=== PATIENT | female | born 2000 | race Caucasian/White ===

== ENCOUNTER 2020-01-08 17:51 | Inpatient (IN) ==
[2020-01-08 18:15] LABS: Appearance Urine Cloudy (Clear); Bacteria Urine Automated 4+ (Negative); Bilirubin Urine Negative (Negative); Blood Urine 2+ (Negative); Color Urine Yellow; Epithelial Cell Urine Auto >30 /lpf (0-5); Glucose Urine UA Negative (Negative); Ketones Urine Negative (Negative); Leukocyte Esterase Urine 1+ (Negative); Nitrite Urine Negative (Negative); Specific Gravity Urine 1.018 (1.000-1.030); Urobilinogen Urine Negative (Negative); pH Urine 7.5 (4.5-7.5)
[2020-01-08 18:19] LABS: Protein Urine Negative (Negative); Sulfosalicylic Acid Urine Negative (Negative)
--- NOTE | 2020-01-08 18:24 | Emergency Department Note ---
Impression & Plan Depression with suicidal ideation, Anxiety ED Provider Note NAME: SUYAPA ORELLANA AGE: 19 SEX: F : 2000 ARRIVES VIA: Walk-In INFORMANT: Patient, ED PROVIDER(S): Jonathan Alcantar DO CHIEF COMPLAINT: Anxiety and depression HPI: The patient is a 19-year-old female who presented to the emergency department with her mother for mental health evaluation. The patient does have a history of depression and is currently being treated with Lexapro however she just started this medication approximately 1 month ago. She states for approximately 1 year she has had some depression and suicidal ideation. 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 She denies having any drug or alcohol abuse but does state that she has had suicidal ideation and recently started having a plan of wanting to harm herself by either taking an overdose of medications or driving her vehicle off the road and causing a collision. She states her symptoms are moderate to severe at this time. She is never had previous inpatient mental health treatment. She denies having any chest pain or difficulty breathing. She denies having any recent illnesses such as cough or fever. ROS: See above HPI for pertinent positives & negatives. A total of 10 systems reviewed and were otherwise negative. PAST MEDICAL HISTORY: See Below PAST SURGICAL HISTORY: See Below FAMILY HISTORY: See Below SOCIAL HISTORY: See Below HOME MEDICATIONS: See Below ALLERGIES: See Below VITALS: See Below PHYSICAL EXAMINATION: GENERAL: The patient is awake and alert. She is very anxious appearing and tearful. EYES: The conjunctivae are clear. The pupils are round and reactive. EARS, NOSE, MOUTH AND THROAT: The nose is without any evidence of any deformity. NECK: The neck is nontender and supple. RESPIRATORY: Normal respiratory effort is noted there is no evidence of wheezing rhonchi or rales CARDIOVASCULAR: Tachycardic rate with regular rhythm was noted. There was no definite murmur. GASTROINTESTINAL: The abdomen is soft. Abdomen is nontender. MUSCULOSKELETAL/EXTREMITIES: There is no evidence of gross deformity full range of motion is noted in the hips and shoulders. SKIN: There is no obvious evidence of any rash. There are no petechiae, pallor or cyanosis noted. NEUROLOGIC: Patient is awake alert and oriented x3 strength is symmetric patellar reflexes are 2+ bilaterally PSYCH: The patient is awake and alert. She makes poor eye contact for most of the evaluation. She is tearful and mixed suicidal ideation with a plan. MEDICAL DECISION MAKING: The patient is a 19-year-old female who presented to the emergency department for mental health evaluation. The patient was having very severe depression as well as suicidal ideation. She started having a plan with thoughts of overdosing or possibly crashing her car. She presented to the emergency department after symptoms continue to worsen despite medical treatment as an outpatient. She was evaluated and medically cleared by myself in the emergency department. She was found to have some signs of urinary tract infection however I feel this is a contaminated specimen as she has no UTI symptoms. I would prefer that the culture be followed to determine if treatment should be initiated or if the patient develops symptoms. She was evaluated by the mental health residential case manager in the emergency department. She was felt to be a good candidate for inpatient management. At this time the patient is agreeable to inpatient management and is awaiting evaluation by 3 S. The patient was reevaluated and was still tearful at 1 point in a nicotine patch was ordered. Triage Nursing notes reviewed. Prior medical records reviewed Vital Signs: reviewed and remarkable for initial tachycardia. Differential diagnosis: Mood disorder, infection, hypoglycemia, electrolyte abnormalities, cardiac sources, intracerebral event, toxicologic, trauma, neurologic, as well as other pathologies. ER treatment provided: See below Diagnostics interpreted by me: ECG: none Laboratory studies: As stated above and show below. Imaging studies: See below Consultation(s): None Past Med/Surg History Medical History Abdominal hernia Family History Other Cancer Gallbladder disease Social History Smoking Status: Never smoker Tobacco Type: E-cigarettes / Vaping Feels Safe at Home: Yes Allergies Allergies Allergy/AdvReac Type Severity Reaction Status Date / Time No Known Allergies Allergy Mild Verified 01/08/20 18:20 Home Meds Home Medications Medication Instructions Recorded Confirmed escitalopram oxalate [Lexapro] 20 mg PO DAILY 01/08/20 01/08/20 norgestimate-ethinyl estradiol 1 tab PO DAILY 01/08/20 01/08/20 Results & Data (ED) Vital Signs Vital Signs - 24 hr 01/08/20 17:52 01/08/20 20:07 Temperature 36.8 C Temperature Source Oral Pulse Rate 131 H Pulse Rate [Right Finger] 72 Pulse Rhythm Regular Pulse Strength Normal Respiratory Rate 20 16 Respiratory Effort / Characteristics Non-Labored Spontaneous Respiratory Depth Normal Respiratory Pattern Regular Blood Pressure 111/63 Blood Pressure [Right Arm] 94/65 L Blood Pressure Mean 79 Blood Pressure Mean [Right Arm] 74 Pulse Oximetry 99 100 Oxygen Delivery Method Room Air Sepsis Recent Fever Within 48 Hours No Sepsis New/Unexplained Change in Mental Status N/A Sepsis Action Taken by Nursing No Action Required Home Medications Current Medication List: was personally reviewed by me Laboratory Data Attestation: I reviewed the patient's lab results. Result diagrams: 01/08/20 18:33 01/08/20 18:33 Lab Results 01/08/20 01/08/20 01/08/20 Range/Units 18:02 18:02 18:18 WBC (4.8-10.8) K/uL RBC (4.2-5.4) M/uL Hgb (12.0-16.0) g/dL Hct (37-47) % MCV (80-100) fL MCH (25-34) pg MCHC (32-36) g/dL RDW Std Deviation (36.4-46.3) fL RDW Coeff of Scotty (11.5-14.5) % Plt Count (130-400) K/uL MPV (7.4-10.4) fL Immature Gran % (Auto) % Neut % (Auto) % Lymph % (Auto) % Cook % (Auto) % Eos % (Auto) % Baso % (Auto) % Neut # (Auto) (1.4-6.5) K/uL Lymph # (Auto) (1.2-3.4) K/uL Cook # (Auto) (0.11-0.59) K/uL Eos # (Auto) (0-0.5) K/uL Baso # (Auto) (0-0.2) K/uL Immature Gran # (Auto) (0.00-0.02) K/uL Sodium (136-145) mmol/L Potassium (3.5-5.1) mmol/L Chloride (98-107) mmol/L Carbon Dioxide (21-32) mmol/L Anion Gap (3-11) BUN (7-18) mg/dl Creatinine (0.6-1.2) mg/dl Est Cr Clr Drug Dosing ml/min Est GFR ( Amer) Est GFR (Non-Af Amer) BUN/Creatinine Ratio (10-20) Glucose (70-99) mg/dl Calcium (8.5-10.1) mg/dl Total Bilirubin (0.2-1) mg/dl AST (15-37) U/L ALT (12-78) U/L Alkaline Phosphatase (45-117) U/L Total Protein (6.4-8.2) gm/dl Albumin (3.4-5.0) gm/dl Globulin (2.5-4.0) gm/dl Albumin/Globulin Ratio (0.9-2) TSH (0.300-4.500) uIu/ml HCG, Qual (Negative) Urine Color Yellow Urine Appearance Cloudy A (Clear) Urine pH 7.5 (4.5-7.5) Ur Specific Butler 1.018 (1.000-1.030) Urine Protein Negative (Negative) Urine Glucose (UA) Negative (Negative) Urine Ketones Negative (Negative) Urine Blood 2+ H (Negative) Urine Nitrite Negative (Negative) Urine Bilirubin Negative (Negative) Urine Urobilinogen Negative (Negative) Ur Leukocyte Esterase 1+ H (Negative) Urine WBC (Auto) 10-30 H (0-5) /hpf Urine RBC (Auto) 10-30 H (0-4) /hpf U Hyaline Cast (Auto) 1-5 (0-5) /lpf U Epithel Cells (Auto) >30 H (0-5) /lpf Urine Bacteria (Auto) 4+ H (Negative) Salicylates (2.8-20) mg/dl Urine Opiates Screen Neg (Neg) Ur Methadone, Qual Neg (Neg) Acetaminophen (10-30) ug/ml Urine Barbiturates Neg (Neg) Ur Phencyclidine (PCP) Neg (Neg) U Amphetamin/Meth Scrn Neg (Neg) MDMA (Ecstasy) Screen Neg (Neg) U Benzodiazepines Scrn Neg (Neg) Ur Cocaine Metabolite Neg (Neg) U Marijuana (THC) Screen Pos H (Neg) Ethyl Alcohol mg/dL (0-3) mg/dl COVID-19 Eval [facility] SARS-CoV-2, RNA, NAAT (NEGATIVE) 01/08/20 01/08/20 01/08/20 Range/Units 18:18 18:33 18:33 WBC 7.81 (4.8-10.8) K/uL RBC 4.37 (4.2-5.4) M/uL Hgb 13.8 (12.0-16.0) g/dL Hct 42.5 (37-47) % MCV 97.3 (80-100) fL MCH 31.6 (25-34) pg MCHC 32.5 (32-36) g/dL RDW Std Deviation 42.7 (36.4-46.3) fL RDW Coeff of Scotty 11.9 (11.5-14.5) % Plt Count 333 (130-400) K/uL MPV 10.4 (7.4-10.4) fL Immature Gran % (Auto) 0.3 % Neut % (Auto) 76.4 % Lymph % (Auto) 18.6 % Cook % (Auto) 4.1 % Eos % (Auto) 0.3 % Baso % (Auto) 0.3 % Neut # (Auto) 5.98 (1.4-6.5) K/uL Lymph # (Auto) 1.45 (1.2-3.4) K/uL Cook # (Auto) 0.32 (0.11-0.59) K/uL Eos # (Auto) 0.02 (0-0.5) K/uL Baso # (Auto) 0.02 (0-0.2) K/uL Immature Gran # (Auto) 0.02 (0.00-0.02) K/uL Sodium 139 (136-145) mmol/L Potassium 3.9 (3.5-5.1) mmol/L Chloride 106 (98-107) mmol/L Carbon Dioxide 25 (21-32) mmol/L Anion Gap 8.0 (3-11) BUN 12 (7-18) mg/dl Creatinine 0.96 (0.6-1.2) mg/dl Est Cr Clr Drug Dosing 80.5 ml/min Est GFR ( Amer) 98.0 Est GFR (Non-Af Amer) 84.5 BUN/Creatinine Ratio 12.9 (10-20) Glucose 115 H (70-99) mg/dl Calcium 8.8 (8.5-10.1) mg/dl Total Bilirubin 0.9 (0.2-1) mg/dl AST 10 L (15-37) U/L ALT 16 (12-78) U/L Alkaline Phosphatase 62 (45-117) U/L Total Protein 7.5 (6.4-8.2) gm/dl Albumin 3.8 (3.4-5.0) gm/dl Globulin 3.7 (2.5-4.0) gm/dl Albumin/Globulin Ratio 1.0 (0.9-2) TSH 1.230 (0.300-4.500) uIu/ml HCG, Qual (Negative) Urine Color Urine Appearance (Clear) Urine pH (4.5-7.5) Ur Specific Butler (1.000-1.030) Urine Protein (Negative) Urine Glucose (UA) (Negative) Urine Ketones (Negative) Urine Blood (Negative) Urine Nitrite (Negative) Urine Bilirubin (Negative) Urine Urobilinogen (Negative) Ur Leukocyte Esterase (Negative) Urine WBC (Auto) (0-5) /hpf Urine RBC (Auto) (0-4) /hpf U Hyaline Cast (Auto) (0-5) /lpf U Epithel Cells (Auto) (0-5) /lpf Urine Bacteria (Auto) (Negative) Salicylates (2.8-20) mg/dl Urine Opiates Screen (Neg) Ur Methadone, Qual (Neg) Acetaminophen (10-30) ug/ml Urine Barbiturates (Neg) Ur Phencyclidine (PCP) (Neg) U Amphetamin/Meth Scrn (Neg) MDMA (Ecstasy) Screen (Neg) U Benzodiazepines Scrn (Neg) Ur Cocaine Metabolite (Neg) U Marijuana (THC) Screen (Neg) Ethyl Alcohol mg/dL (0-3) mg/dl COVID-19 Eval Order SARS-CoV-2, RNA, NAAT NEGATIVE (NEGATIVE) 01/08/20 01/08/20 01/08/20 Range/Units 18:33 18:33 18:33 WBC (4.8-10.8) K/uL RBC (4.2-5.4) M/uL Hgb (12.0-16.0) g/dL Hct (37-47) % MCV (80-100) fL MCH (25-34) pg MCHC (32-36) g/dL RDW Std Deviation (36.4-46.3) fL RDW Coeff of Scotty (11.5-14.5) % Plt Count (130-400) K/uL MPV (7.4-10.4) fL Immature Gran % (Auto) % Neut % (Auto) % Lymph % (Auto) % Cook % (Auto) % Eos % (Auto) % Baso % (Auto) % Neut # (Auto) (1.4-6.5) K/uL Lymph # (Auto) (1.2-3.4) K/uL Cook # (Auto) (0.11-0.59) K/uL Eos # (Auto) (0-0.5) K/uL Baso # (Auto) (0-0.2) K/uL Immature Gran # (Auto) (0.00-0.02) K/uL Sodium (136-145) mmol/L Potassium (3.5-5.1) mmol/L Chloride (98-107) mmol/L Carbon Dioxide (21-32) mmol/L Anion Gap (3-11) BUN (7-18) mg/dl Creatinine (0.6-1.2) mg/dl Est Cr Clr Drug Dosing ml/min Est GFR ( Amer) Est GFR (Non-Af Amer) BUN/Creatinine Ratio (10-20) Glucose (70-99) mg/dl Calcium (8.5-10.1) mg/dl Total Bilirubin (0.2-1) mg/dl AST (15-37) U/L ALT (12-78) U/L Alkaline Phosphatase (45-117) U/L Total Protein (6.4-8.2) gm/dl Albumin (3.4-5.0) gm/dl Globulin (2.5-4.0) gm/dl Albumin/Globulin Ratio (0.9-2) TSH (0.300-4.500) uIu/ml HCG, Qual Negative (Negative) Urine Color Urine Appearance (Clear) Urine pH (4.5-7.5) Ur Specific Butler (1.000-1.030) Urine Protein (Negative) Urine Glucose (UA) (Negative) Urine Ketones (Negative) Urine Blood (Negative) Urine Nitrite (Negative) Urine Bilirubin (Negative) Urine Urobilinogen (Negative) Ur Leukocyte Esterase (Negative) Urine WBC (Auto) (0-5) /hpf Urine RBC (Auto) (0-4) /hpf U Hyaline Cast (Auto) (0-5) /lpf U Epithel Cells (Auto) (0-5) /lpf Urine Bacteria (Auto) (Negative) Salicylates < 1.7 L (2.8-20) mg/dl Urine Opiates Screen (Neg) Ur Methadone, Qual (Neg) Acetaminophen < 2 L (10-30) ug/ml Urine Barbiturates (Neg) Ur Phencyclidine (PCP) (Neg) U Amphetamin/Meth Scrn (Neg) MDMA (Ecstasy) Screen (Neg) U Benzodiazepines Scrn (Neg) Ur Cocaine Metabolite (Neg) U Marijuana (THC) Screen (Neg) Ethyl Alcohol mg/dL < 3.0 (0-3) mg/dl COVID-19 Eval Order SARS-CoV-2, RNA, NAAT (NEGATIVE) Blood Pressure Blood Pressure Findings: Normal blood pressure Discharge Plan Visit Data Chief Complaint: Mental Health Evaluation Stated Complaint: mental health eval ED Provider: Jonathan Alcantar Discharge Problem: Depression with suicidal ideation, Anxiety Forms Stand Alone Forms: [facility], Suicide Prevention Resources Prescriptions Prescriptions: No Action norgestimate-ethinyl estradiol 0.18/0.215/0.25 mg-35 mcg (28) Tablet 1 tab PO DAILY RF: 0 escitalopram oxalate [Lexapro] 20 mg Tablet 20 mg PO DAILY RF: 0 Referrals Referrals: PCP,NO [Primary Care Provider] -
[2020-01-08 18:32] LABS: Amphetamines+Metham, Urine Neg (Neg); Barbiturates, Urine Neg (Neg); Benzodiazepine, Urine Neg (Neg); Cocaine, Urine Neg (Neg); MDMA (Ecstacy), Urine Neg (Neg); Methadone, Urine Neg (Neg); Opiate, Urine Neg (Neg); Phencyclidine, Urine Neg (Neg)
[2020-01-08 18:46] LABS: Basophils # (auto) 0.02 K/uL (0-0.2); Basophils % (auto) 0.3 %; Eosinophils # (auto) 0.02 K/uL (0-0.5); Eosinophils % (auto) 0.3 %; Hematocrit (blood only) 42.5 % (37-47); Hemoglobin 13.8 g/dL (12.0-16.0); Immature Granulocytes # (auto) 0.02 K/uL (0.00-0.02); Immature Granulocytes % (auto) 0.3 %; Lymphocytes # (auto) 1.45 K/uL (1.2-3.4); Lymphocytes % (auto) 18.6 %; Mean Corpuscular Hemoglobin 31.6 pg (25-34); Mean Corpuscular Hgb Conc 32.5 g/dL (32-36); Mean Corpuscular Volume 97.3 fL (80-100); Mean Platelet Volume 10.4 fL (7.4-10.4); Monocytes # (auto) 0.32 K/uL (0.11-0.59); Monocytes % (auto) 4.1 %; Neutrophils # (auto) 5.98 K/uL (1.4-6.5); Neutrophils % (auto) 76.4 %; Platelet Count 333 K/uL (130-400); RDW Coefficient of Variation 11.9 % (11.5-14.5); RDW Standard Deviation 42.7 fL (36.4-46.3); Red Blood Count 4.37 M/uL (4.2-5.4); White Blood Count 7.81 K/uL (4.8-10.8)
[2020-01-08 19:12] LABS: Pregnancy Test, Serum Negative (Negative)
[2020-01-08 19:20] LABS: Albumin Level 3.8 gm/dl (3.4-5.0); BUN Creatinine Ratio 12.9 (10-20); Calcium 8.8 mg/dl (8.5-10.1); Creatinine Clr Calc Pharmacy 80.5 ml/min; Est GFR (Non-African American) 84.5; Potassium 3.9 mmol/L (3.5-5.1)
[2020-01-08 19:24] LABS: Salicylate < 1.7 mg/dl (2.8-20)
[2020-01-08 19:25] LABS: Acetaminophen < 2 ug/ml (10-30)
[2020-01-08 19:31] LABS: Bilirubin,Total 0.9 mg/dl (0.2-1); Globulin 3.7 gm/dl (2.5-4.0); Thyroid Stimulating Hormone 1.23 uIu/ml (0.300-4.500); Total Protein 7.5 gm/dl (6.4-8.2)
[2020-01-08] MEDS ORDERED: NICOTINE 7 MG/24 HR TDSY TD ONE (20:05)
[2020-01-08] MEDS ORDERED: SODIUM CHLORIDE 0.65% NA SOLN 45 ML (OCEAN) PRN (20:56)
[2020-01-08] MEDS ORDERED: BISMUTH SUBSALICYLATE LIQD 236 ML PO PRN (20:56)
[2020-01-08] MEDS ORDERED: ACETAMINOPHEN 325 MG TAB PO PRN (20:56)
[2020-01-08] MEDS ORDERED: hydrOXYzine HCl 25 MG TAB PO PRN ×2 (20:56)
[2020-01-08] MEDS ORDERED: MAGNESIUM HYDROXIDE SUSP 30 ML UDC PO PRN (20:56)
[2020-01-08] MEDS ORDERED: ALUMINUM/MAGNESIUM SUSP 30 ML UDC PO PRN (20:56)
[2020-01-09] MEDS: NICOTINE POLACRILEX 2 MG GUM MT PRN ×2 (08:25→14:53)
[2020-01-09] MEDS ORDERED: NICOTINE 14 MG/24 HR PATCH TD SCH (09:00)
[2020-01-09] MEDS ORDERED: ESCITALOPRAM OXALATE 10 MG TAB PO ONE (11:22)
[2020-01-09] MEDS: SULFAMETHOXAZOLE/TRIMETHOPRIM DS 800/160MG TAB PO SCH ×2 (11:54→20:30)
[2020-01-09] MEDS ORDERED: NORGESTIMATE PO SCH (12:00)
[2020-01-09] MEDS ORDERED: [UNRECOGNIZED DRUG - OTHER] PO SCH (12:00)
[2020-01-09] MEDS ORDERED: ETHINYL ESTRADIOL PO SCH (12:00)
--- NOTE | 2020-01-09 12:09 | History & Physical ---
Date of Service January 09, 2020 Impression / Recommendations Impression 19 yo female with major depression, new onset SI on an SSRI, presented with SI last night with plan to OD or crash car. Currently stating she is worried about return to work and asking to sign a 72 hour notice. Reviewed that although she is denying suicidal ideation this am, this is only a few hours after presentation, discussed need for med changes and aftercare. She is agreeable to remain hospitalized with [address] (1) Major depressive disorder with single episode: The patient was admitted to the [facility]) on q15 min checks (behavioral with suicide precautions) for safety. The patient will participate in group, recreational, and milieu therapies and will be offered additional individual and family sessions as clinically appropriate. Taper SSRI to Lexapro 10 mg today then likely d/c, reviewed discontinuation syndrome risks against risk of it is exacerbating SI given FDA warnings on all antidepressants. Discussed possible trial of Wellbutrin. Active/Remission status: currently active Major depression episode severity: moderate Qualified Code(s): F32.1 - Major depressive disorder, single episode, moderate (2) UTI (urinary tract infection): gram negative rods, sensitivities pending. She does endorse some dysuria (?chronic) and doesn't believe she is having menses. She denied allergies to antibiotics. Reviewed Bactrim DS BID for 5 days pending final results. Urinary tract infection type: acute cystitis Hematuria presence: without hematuria Qualified Code(s): N30.00 - Acute cystitis without hematuria Risk Factors Assessment Do You Have Access To A Gun?: Yes (in home but not hers, must ensure secured) Protective Factors Assessment Employed: Yes ([employer]; [employer] and [place] [employer]) Psychiatric History Identifying Data SUYAPA ORELLANA is a 19-year-old F with no formal psych history, was admitted on 01/08/20 20:56 on a 201 voluntary commitment for SI with plan. Chief Complaint "I've felt nothing but intensely worse the past month". History of Present Illness States she's had low mood for 1.5 years since deciding to leave college due to class failure and hx of underage citation and moving home. She loves parents but it is difficult to be a young adult living at home, at one point her father did not approve of her boyfriend. Her motivation and energy started to decline, personality changed in that less social and less confident in herself which now leads to second guessing herself in social interactions. She has never seen a therapist but went to [facility] clinic to get checked out about 6 weeks ago. She describes taking computerized rating scales and being started on Lexapro with little discussion about diagnosis. 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 She describes some tremor and jitteriness on the medication, particularly following dose increase in Lexapro to 20 mg last week and this is also when suicidal thoughts peaked. She decided to come to ED as boyfriend was away for the weekend and she worried he may cheat or about herself acting on the thoughts. Thoughts included OD on her medication or crashing her car. Past Psychiatric History Current Psychiatric Diagnosis: Depression Outpatient Services: none Previous Psych Admissions: none Do You Have Access To A Gun?: Yes (in home but not hers, must ensure secured) History of Previous Suicide Attempt: No Past Medication Trials: none Past Head Trauma/Neuro History History of Concussion/Seizure: No Allergies Allergy/AdvReac Type Severity Reaction Status Date / Time No Known Allergies Allergy Mild Verified 01/08/20 18:20 Home Medications Home Medications Medication Instructions Recorded Confirmed Type escitalopram oxalate [Lexapro] 20 mg PO DAILY 01/08/20 01/08/20 History norgestimate-ethinyl estradiol 1 tab PO DAILY 01/08/20 01/08/20 History Family History Family History of: Depression (reports 26 yo brother struggles due to going blind from a congenital condition) and Doesn't Know Alcohol History Hx of Alcohol Use Over the Past 12 Months: No AUDIT Total Score: 0 Smoking Use Have You Smoked or Used Tobacco Products in the Last 30 Days: Yes tobacco type: e-cigarettes Smoking Status: Current every day smoker Substance History Hx of Prescription Med Misuse Over the Past 12 Months: No Hx of Over the Counter Med Misuse Over the Past 12 Months: No Hx of Inhalent Misuse Over the Past 12 Months: No Hx of Organic Substance Use Over the Past 12 Months: Yes (marijuana) Hx of Illegal Substances/Street Drug Use Over Past 12 Months: No Problems as a Result of Past Substance Use: None Identified Problems as a Result of Past Substance Use Comments: tried cocaine while in college Personal History Living Arrangements: Home Childhood: "baby" of 3 children (2 older brothers) Highest Grade Completed: High School Graduate and Some College Employment Status: [employer] Employed (but over 3 separate positions) Number Of Children: 0 Beliefs That Will Affect Care: None Current Legal Problems: No Hx Legal Problems: No Hx Traumatic Life Events: Yes Psychological Trauma History Comment: had an elective termination of an unplanned with her boyfriend last year Patient History Medical History Abdominal hernia Family History Other Cancer Gallbladder disease Social History Smoking Status: Current every day smoker Tobacco Type: E-cigarettes / Vaping Preferred Language: Libyan Communication Ability: Effective Pencil Inspector Required: No Beliefs That Will Affect Care: None Feels Safe at Home: Yes Assistive Devices: Glasses Review of Systems Review of Systems: All systems reviewed & are unremarkable except as noted in HPI & below Physical Exam Psychiatric: Orientation: alert and oriented x 3 Apperance: appropriately dressed and appropriately groomed Eye Contact: good eye contact Motor Behavior: no abnormal motor movements Speech: normal rate/rhythm/volume of speech Affect: + depressed affect Mood: + anxious mood Thought Process: goal directed thought process Thought Content: reality based without delusions Suicidal Thoughts: denies suicidal thoughts Homicidal Thoughts: denies homicidal thoughts Hallucinations: no auditory hallucinations and no visual hallucinations Cognition: attention grossly intact and language grossly intact Estimated Intelligence: consistent with education level Insight: + limited insight Judgement: + limited judgement Vital Signs (Past 24 Hours): Last Vital Signs Temp 37 C 01/09/20 06:24 Pulse 80 01/09/20 06:24 Resp 18 01/09/20 06:24 BP 101/68 01/09/20 06:24 Pulse Ox 99 01/08/20 21:48 Exam Statement: A physical exam was performed in the ED by Dr. Canseco for the purposes of medical clearance. I accept that physical as correct and adequate for the purposes of the inpatient physical exam. Results & Data (U) Laboratory Results Laboratory Results - last 24 hr 01/08/20 01/08/20 01/08/20 18:02 18:02 18:02 WBC RBC Hgb Hct MCV MCH MCHC RDW Std Deviation RDW Coeff of Scotty Plt Count MPV Immature Gran % (Auto) Neut % (Auto) Lymph % (Auto) [place] % (Auto) Eos % (Auto) Baso % (Auto) Neut # (Auto) Lymph # (Auto) [place] # (Auto) Eos # (Auto) Baso # (Auto) Immature Gran # (Auto) Sodium Potassium Chloride Carbon Dioxide Anion Gap BUN Creatinine Est Cr Clr Drug Dosing Est GFR ( Amer) Est GFR (Non-Af Amer) BUN/Creatinine Ratio Glucose Calcium Total Bilirubin AST ALT Alkaline Phosphatase Total Protein Albumin Globulin Albumin/Globulin Ratio TSH HCG, Qual Urine Color Yellow Urine Appearance Cloudy A Urine pH 7.5 Ur Specific [place] 1.018 Urine Protein Negative Urine Glucose (UA) Negative Urine Ketones Negative Urine Blood 2+ H Urine Nitrite Negative Urine Bilirubin Negative Urine Urobilinogen Negative Ur Leukocyte Esterase 1+ H Urine WBC (Auto) 10-30 H Urine RBC (Auto) 10-30 H U Hyaline Cast (Auto) 1-5 U Epithel Cells (Auto) >30 H Urine Bacteria (Auto) 4+ H Salicylates Urine Opiates Screen Neg Ur Methadone, Qual Neg Acetaminophen Urine Barbiturates Neg Ur Phencyclidine (PCP) Neg U Amphetamin/Meth Scrn Neg MDMA (Ecstasy) Screen Neg U Benzodiazepines Scrn Neg Ur Cocaine Metabolite Neg U Marijuana (THC) Screen Pos H U Marijuana THC Carboxy Pending Drug Screen Comment Pending Ethyl Alcohol mg/dL COVID-19 Eval Order SARS-CoV-2, RNA, NAAT 01/08/20 01/08/20 01/08/20 18:18 18:18 18:33 WBC 7.81 RBC 4.37 Hgb 13.8 Hct 42.5 MCV 97.3 MCH 31.6 MCHC 32.5 RDW Std Deviation 42.7 RDW Coeff of Scotty 11.9 Plt Count 333 MPV 10.4 Immature Gran % (Auto) 0.3 Neut % (Auto) 76.4 Lymph % (Auto) 18.6 [place] % (Auto) 4.1 Eos % (Auto) 0.3 Baso % (Auto) 0.3 Neut # (Auto) 5.98 Lymph # (Auto) 1.45 [place] # (Auto) 0.32 Eos # (Auto) 0.02 Baso # (Auto) 0.02 Immature Gran # (Auto) 0.02 Sodium Potassium Chloride Carbon Dioxide Anion Gap BUN Creatinine Est Cr Clr Drug Dosing Est GFR ( Amer) Est GFR (Non-Af Amer) BUN/Creatinine Ratio Glucose Calcium Total Bilirubin AST ALT Alkaline Phosphatase Total Protein Albumin Globulin Albumin/Globulin Ratio TSH HCG, Qual Urine Color Urine Appearance Urine pH Ur Specific [place] Urine Protein Urine Glucose (UA) Urine Ketones Urine Blood Urine Nitrite Urine Bilirubin Urine Urobilinogen Ur Leukocyte Esterase Urine WBC (Auto) Urine RBC (Auto) U Hyaline Cast (Auto) U Epithel Cells (Auto) Urine Bacteria (Auto) Salicylates Urine Opiates Screen Ur Methadone, Qual Acetaminophen Urine Barbiturates Ur Phencyclidine (PCP) U Amphetamin/Meth Scrn MDMA (Ecstasy) Screen U Benzodiazepines Scrn Ur Cocaine Metabolite U Marijuana (THC) Screen U Marijuana THC Carboxy Drug Screen Comment Ethyl Alcohol mg/dL COVID-19 Eval [facility] SARS-CoV-2, RNA, NAAT NEGATIVE 01/08/20 01/08/20 01/08/20 18:33 18:33 18:33 WBC RBC Hgb Hct MCV MCH MCHC RDW Std Deviation RDW Coeff of Scotty Plt Count MPV Immature Gran % (Auto) Neut % (Auto) Lymph % (Auto) [place] % (Auto) Eos % (Auto) Baso % (Auto) Neut # (Auto) Lymph # (Auto) [place] # (Auto) Eos # (Auto) Baso # (Auto) Immature Gran # (Auto) Sodium 139 Potassium 3.9 Chloride 106 Carbon Dioxide 25 Anion Gap 8.0 BUN 12 Creatinine 0.96 Est Cr Clr Drug Dosing 80.5 Est GFR ( Amer) 98.0 Est GFR (Non-Af Amer) 84.5 BUN/Creatinine Ratio 12.9 Glucose 115 H Calcium 8.8 Total Bilirubin 0.9 AST 10 L ALT 16 Alkaline Phosphatase 62 Total Protein 7.5 Albumin 3.8 Globulin 3.7 Albumin/Globulin Ratio 1.0 TSH 1.230 HCG, Qual Urine Color Urine Appearance Urine pH Ur Specific [place] Urine Protein Urine Glucose (UA) Urine Ketones Urine Blood Urine Nitrite Urine Bilirubin Urine Urobilinogen Ur Leukocyte Esterase Urine WBC (Auto) Urine RBC (Auto) U Hyaline Cast (Auto) U Epithel Cells (Auto) Urine Bacteria (Auto) Salicylates < 1.7 L Urine Opiates Screen Ur Methadone, Qual Acetaminophen < 2 L Urine Barbiturates Ur Phencyclidine (PCP) U Amphetamin/Meth Scrn MDMA (Ecstasy) Screen U Benzodiazepines Scrn Ur Cocaine Metabolite U Marijuana (THC) Screen U Marijuana THC Carboxy Drug Screen Comment Ethyl Alcohol mg/dL < 3.0 COVID-19 Eval Order SARS-CoV-2, RNA, NAAT 01/08/20 18:33 WBC RBC Hgb Hct MCV MCH MCHC RDW Std Deviation RDW Coeff of Scotty Plt Count MPV Immature Gran % (Auto) Neut % (Auto) Lymph % (Auto) [place] % (Auto) Eos % (Auto) Baso % (Auto) Neut # (Auto) Lymph # (Auto) [place] # (Auto) Eos # (Auto) Baso # (Auto) Immature Gran # (Auto) Sodium Potassium Chloride Carbon Dioxide Anion Gap BUN Creatinine Est Cr Clr Drug Dosing Est GFR ( Amer) Est GFR (Non-Af Amer) BUN/Creatinine Ratio Glucose Calcium Total Bilirubin AST ALT Alkaline Phosphatase Total Protein Albumin Globulin Albumin/Globulin Ratio TSH HCG, Qual Negative Urine Color Urine Appearance Urine pH Ur Specific [place] Urine Protein Urine Glucose (UA) Urine Ketones Urine Blood Urine Nitrite Urine Bilirubin Urine Urobilinogen Ur Leukocyte Esterase Urine WBC (Auto) Urine RBC (Auto) U Hyaline Cast (Auto) U Epithel Cells (Auto) Urine Bacteria (Auto) Salicylates Urine Opiates Screen Ur Methadone, Qual Acetaminophen Urine Barbiturates Ur Phencyclidine (PCP) U Amphetamin/Meth Scrn MDMA (Ecstasy) Screen U Benzodiazepines Scrn Ur Cocaine Metabolite U Marijuana (THC) Screen U Marijuana THC Carboxy Drug Screen Comment Ethyl Alcohol mg/dL COVID-19 Eval Order SARS-CoV-2, RNA, NAAT Current Inpatient Medications Current Inpatient Medications: Current Inpatient Medications Acetaminophen (Acetaminophen 325 Mg Tab) 650 mg PO Q4H PRN PRN Reason: Headache or Minor Fever Stop: 02/07/20 20:55 Last Admin: 01/08/20 21:09 Dose: 650 mg Documented by: Al Hydrox/Mg Hydrox/Simethicone (Aluminum/Magnesium Susp 30 Ml Udc) 30 ml PO Q4H PRN PRN Reason: GI Upset Stop: 02/07/20 20:55 Bismuth Subsalicylate (Bismuth Subsalicylate Liqd 236 Ml) 15 ml PO PRN PRN PRN Reason: Loose Stool Stop: 02/07/20 20:55 Hydroxyzine HCl (Hydroxyzine Hcl 25 Mg Tab) 50 mg PO HSZ PRN PRN Reason: Insomnia Stop: 02/07/20 20:55 Hydroxyzine HCl (Hydroxyzine Hcl 25 Mg Tab) 25 mg PO Q4H PRN PRN Reason: Anxiety Stop: 02/07/20 20:55 Magnesium Hydroxide (Magnesium Hydroxide Susp 30 Ml Udc) 30 ml PO DAILY PRN PRN Reason: Constipation Stop: 02/07/20 20:55 Miscellaneous (Remove Nicoderm Patch) 1 ea N/A DAILY@[id number] [facility] Stop: 02/08/20 08:58 Last Admin: 01/09/20 11:55 Dose: Not Given Documented by: Nicotine (Nicotine 21 Mg/24 Hr Tdsy) 21 mg TD QAM [facility] Stop: 02/09/20 08:59 Nicotine Polacrilex (Nicotine Polacrilex 2 Mg Gum) 1 piece MT PRN PRN PRN Reason: Nicotine Withdrawal Stop: 02/07/20 20:55 Last Admin: 01/09/20 08:25 Dose: 1 piece Documented by: Non-Formulary Medication (Norgestimate-Ethinyl Estradiol) 1 tab PO DAILY [facility] Stop: 02/08/20 11:59 Sodium Chloride (Sodium Chloride 0.65% Na Soln 45 Ml ([place])) 1 - 2 sprays NA PRN PRN PRN Reason: Nasal Dryness/Congestion Stop: 02/07/20 20:55 Trimethoprim/Sulfamethoxazole (Sulfamethoxazole/Trimethoprim Ds 800/160mg Tab) 1 tab PO Q12 [facility] Stop: 01/14/20 12:29 Last Admin: 01/09/20 11:54 Dose: 1 tab Documented by:
[2020-01-10] MEDS ORDERED: NICOTINE 21 MG/24 HR TDSY TD SCH (09:00)
[2020-01-10] MEDS: SULFAMETHOXAZOLE/TRIMETHOPRIM DS 800/160MG TAB PO SCH (09:14)
--- NOTE | 2020-01-10 13:37 | Discharge Summary ---
Date of Service January 10, 2020 History of Present Illness States she's had low mood for 1.5 years since deciding to leave college due to class failure and hx of underage citation and moving home. She loves parents but it is difficult to be a young adult living at home, at one point her father did not approve of her boyfriend. Her motivation and energy started to decline, personality changed in that less social and less confident in herself which now leads to second guessing herself in social interactions. She has never seen a therapist but went to [facility] to get checked out about 6 weeks ago. She describes taking computerized rating scales and being started on Lexapro with little discussion about diagnosis. 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 She describes some tremor and jitteriness on the medication, particularly following dose increase in Lexapro to 20 mg last week and this is also when suicidal thoughts peaked. She decided to come to ED as boyfriend was away for the weekend and she worried he may cheat or about herself acting on the thoughts. Thoughts included OD on her medication or crashing her car. Physical Exam Mental Examination see admission H&P and day of discharge summary. Vital Signs (Past 24 Hours) Last Vital Signs Temp 36.7 C 01/10/20 06:22 Pulse 76 01/10/20 06:23 Resp 16 01/10/20 06:22 BP 107/75 01/10/20 06:23 Pulse Ox 99 01/08/20 21:48 Principal Diagnosis major depressive disorder Psychiatric Data See daily care summary. In short, signed request to withdrawal from treatment with first 24 hours of stay. Lexapro was tapered to 10 mg then discontinued given reports of worsening SI. Patient remained homesick and stated that only wanted outpatient care, now retracting some of the severity of SI statements. There was some discussion about starting patient on Wellbutrin to address depression but this was not initiated as anxiety high in anticipation of discharge and voices mainly wanting therapy. A family session was held with mother by phone prior to discharge who supports return home. Sleep disruption was likely related to SSRI and hospital setting, discussed could try prn melatonin 3-5 mg trial if persists upon return home. She is to complete course of antibiotics for UTI which may have contributed to her initial presentation. Day of Discharge Assessment alert, cooperative, speech normal in rate and volume. Thoughts are organized. She denies SI/HI/esparza. She verbalizes a safety plan and has family support. There is no indication for 302 commitment at this time. She is stable for discharge to outpatient level of care. Transition of Care Transition Of Care Record: was reviewed with the patient Advance Directives Advance Directives Information Provided: Yes Advance Directives: No Mental Health Advance Directive: No Advance Directives on File: No Living Will: No Power of Humid System Operator: No Advance Directives Reason:: Declines as Mental Health Visit. Risk Factors Assessment Do You Have Access To A Gun?: Yes (in home but not hers, must ensure secured) Protective Factors Assessment Employed: Yes ([employer]; [employer] and [employer]) Tobacco Cessation at Discharge Tobacco Cessation Medication Prescribed at Discharge: Offered & Pt Refused Total Time Total Time Spent: Greater Than 30 Minutes Total Time Includes: Examination of the patient, Discharge Planning and Medication Reconciliation Discharge Data Lab Results 01/08/20 01/08/20 01/08/20 18:02 18:02 18:18 WBC RBC Hgb Hct MCV MCH MCHC RDW Std Deviation RDW Coeff of Scotty Plt Count MPV Immature Gran % (Auto) Neut % (Auto) Lymph % (Auto) Kidder % (Auto) Eos % (Auto) Baso % (Auto) Neut # (Auto) Lymph # (Auto) Kidder # (Auto) Eos # (Auto) Baso # (Auto) Immature Gran # (Auto) Sodium Potassium Chloride Carbon Dioxide Anion Gap BUN Creatinine Est Cr Clr Drug Dosing Est GFR ( Amer) Est GFR (Non-Af Amer) BUN/Creatinine Ratio Glucose Calcium Total Bilirubin AST ALT Alkaline Phosphatase Total Protein Albumin Globulin Albumin/Globulin Ratio TSH HCG, Qual Urine Color Yellow Urine Appearance Cloudy A Urine pH 7.5 Ur Specific [place] 1.018 Urine Protein Negative Urine Glucose (UA) Negative Urine Ketones Negative Urine Blood 2+ H Urine Nitrite Negative Urine Bilirubin Negative Urine Urobilinogen Negative Ur Leukocyte Esterase 1+ H Urine WBC (Auto) 10-30 H Urine RBC (Auto) 10-30 H U Hyaline Cast (Auto) 1-5 U Epithel Cells (Auto) >30 H Urine Bacteria (Auto) 4+ H Salicylates Urine Opiates Screen Neg Ur Methadone, Qual Neg Acetaminophen Urine Barbiturates Neg Ur Phencyclidine (PCP) Neg U Amphetamin/Meth Scrn Neg MDMA (Ecstasy) Screen Neg U Benzodiazepines Scrn Neg Ur Cocaine Metabolite Neg U Marijuana (THC) Screen Pos H Ethyl Alcohol mg/dL COVID[facility]19 [facility] SARS-CoV-2, RNA, NAAT 01/08/20 01/08/20 01/08/20 18:18 18:33 18:33 WBC 7.81 RBC 4.37 Hgb 13.8 Hct 42.5 MCV 97.3 MCH 31.6 MCHC 32.5 RDW Std Deviation 42.7 RDW Coeff of Scotty 11.9 Plt Count 333 MPV 10.4 Immature Gran % (Auto) 0.3 Neut % (Auto) 76.4 Lymph % (Auto) 18.6 [place] % (Auto) 4.1 Eos % (Auto) 0.3 Baso % (Auto) 0.3 Neut # (Auto) 5.98 Lymph # (Auto) 1.45 Kidder # (Auto) 0.32 Eos # (Auto) 0.02 Baso # (Auto) 0.02 Immature Gran # (Auto) 0.02 Sodium 139 Potassium 3.9 Chloride 106 Carbon Dioxide 25 Anion Gap 8.0 BUN 12 Creatinine 0.96 Est Cr Clr Drug Dosing 80.5 Est GFR ( Amer) 98.0 Est GFR (Non-Af Amer) 84.5 BUN/Creatinine Ratio 12.9 Glucose 115 H Calcium 8.8 Total Bilirubin 0.9 AST 10 L ALT 16 Alkaline Phosphatase 62 Total Protein 7.5 Albumin 3.8 Globulin 3.7 Albumin/Globulin Ratio 1.0 TSH 1.230 HCG, Qual Urine Color Urine Appearance Urine pH Ur Specific [place] Urine Protein Urine Glucose (UA) Urine Ketones Urine Blood Urine Nitrite Urine Bilirubin Urine Urobilinogen Ur Leukocyte Esterase Urine WBC (Auto) Urine RBC (Auto) U Hyaline Cast (Auto) U Epithel Cells (Auto) Urine Bacteria (Auto) Salicylates Urine Opiates Screen Ur Methadone, Qual Acetaminophen Urine Barbiturates Ur Phencyclidine (PCP) U Amphetamin/Meth Scrn MDMA (Ecstasy) Screen U Benzodiazepines Scrn Ur Cocaine Metabolite U Marijuana (THC) Screen Ethyl Alcohol mg/dL COVID-19 Eval Order SARS-CoV-2, RNA, NAAT NEGATIVE 01/08/20 01/08/2020 18:33 18:33 18:33 WBC RBC Hgb Hct MCV MCH MCHC RDW Std Deviation RDW Coeff of Scotty Plt Count MPV Immature Gran % (Auto) Neut % (Auto) Lymph % (Auto) [place] % (Auto) Eos % (Auto) Baso % (Auto) Neut # (Auto) Lymph # (Auto) [place] # (Auto) Eos # (Auto) Baso # (Auto) Immature Gran # (Auto) Sodium Potassium Chloride Carbon Dioxide Anion Gap BUN Creatinine Est Cr Clr Drug Dosing Est GFR ( Amer) Est GFR (Non-Af Amer) BUN/Creatinine Ratio Glucose Calcium Total Bilirubin AST ALT Alkaline Phosphatase Total Protein Albumin Globulin Albumin/Globulin Ratio TSH HCG, Qual Negative Urine Color Urine Appearance Urine pH Ur Specific [place] Urine Protein Urine Glucose (UA) Urine Ketones Urine Blood Urine Nitrite Urine Bilirubin Urine Urobilinogen Ur Leukocyte Esterase Urine WBC (Auto) Urine RBC (Auto) U Hyaline Cast (Auto) U Epithel Cells (Auto) Urine Bacteria (Auto) Salicylates < 1.7 L Urine Opiates Screen Ur Methadone, Qual Acetaminophen < 2 L Urine Barbiturates Ur Phencyclidine (PCP) U Amphetamin/Meth Scrn MDMA (Ecstasy) Screen U Benzodiazepines Scrn Ur Cocaine Metabolite U Marijuana (THC) Screen Ethyl Alcohol mg/dL < 3.0 COVID-19 Eval Order SARS-CoV-2, RNA, NAAT Hospital Course (1) Major depressive disorder with single episode: The patient was admitted to the [facility] ([facility] inpatient mental health unit) on q15 min checks (behavioral with suicide precautions) for safety. The patient will participate in group, recreational, and milieu therapies and will be offered additional individual and family sessions as clinically appropriate. Taper SSRI to Lexapro 10 mg today then likely d/c, reviewed discontinuation syndrome risks against risk of it is exacerbating SI given FDA warnings on all antidepressants. Discussed possible trial of Wellbutrin. (2) UTI (urinary tract infection): gram negative rods, sensitivities pending. She does endorse some dysuria (?chronic) and doesn't believe she is having menses. She denied allergies to antibiotics. Reviewed Bactrim DS BID for 5 days pending final results. Mental Health & Subst Abuse Tx Therapist Name of Therapist: None Chief Accounting Officer Name of Chief Accounting Officer: None Post Discharge Appointments Primary Care Physician Name Of Family Doctor: Skye Arreola Smoking Cessation Counseling Tobacco Cessation Medication Prescribed at Discharge: Offered & Pt Refused Discharge Plan Discharge Items Patient Disposition: Home - Self-Care Reason For Visit: DEPRESSIVE DISORDER Discharge Diagnosis: major depressive disorder Activity: Resume your previous activity Non-emergency contact: Primary Care Provider and Therapist Call non-emergency contact if: you have any medication questions and your symptoms worsen Follow-up/Referrals: PCP,NO [Primary Care Provider] - Diet: Regular Addtl Attending Provider Instructions: SPECIAL CARE INSTRUCTIONS: 1. Follow through with your scheduled aftercare appointments. If unable to keep an appointment, please call to reschedule. 2. Take your medication only as prescribed. Medication should not be changed or stopped without the approval of your doctor. In the event of worsening symptoms or concerns about side effects, contact your doctor immediately. 3. Utilize new healthy coping skills, anger management skills, and stress management skills learned during your hospitalization. Journal feelings and process them with a support person. Identify stressors or situations that may result in relapse, deterioration or inappropriate behaviors and develop a plan to deal with those issues. 4. If your coping skills are ineffective and you are in crisis, contact your outpatient providers for direction. If unable to reach your providers, please call the [facility] CRISIS LINE AT , go to the [facility] walk-in center at [address], [place], or go to the closest Emergency Room. 5. Avoid alcohol and un-prescribed drugs. 6. You have been provided with the Mental Health Advance Directives Pamphlet for your review. AFTERCARE APPOINTMENTS: * Please call your insurance company prior to your scheduled appointment to confirm your aftercare providers are covered. Take your insurance information to your appointments. WHO TO CALL AND WHEN: Medical Emergencies: For questions or emergencies related to your hospital stay, please contact the Inpatient Behavioral Health Unit at [phone]. A customer service advisor is on-call 30/09 for the Behavioral Health Unit for emergencies At any time you feel your situation is an emergency, you may also call 911 immediately. Pending Studies at Discharge: No Stand-Alone Forms: [employer], Smoking Cessation Medications and DC Order Prescriptions: New sulfamethoxazole-trimethoprim 800-160 mg Tablet 1 tab PO Q12 3 Days Qty: 7 RF: 0 Continued norgestimate-ethinyl estradiol 0.18/0.215/0.25 mg-35 mcg (28) Tablet 1 tab PO DAILY RF: 0 Discontinued escitalopram oxalate [Lexapro] 20 mg Tablet 20 mg PO DAILY RF: 0 Discharge Orders: Discharge Order (Routine); Ordered 01/10/20 Ordered By: Shayna Zapien Admission Data Admit Date/Time: 01/08/20 20:56 Attending Provider: Shayna Zapien Admit Provider: Shayna Zapien Primary Care Provider: PCPKUSUM Coding Level of Care Code 15468 D/C day mgmt > 30 min Diagnoses Major depressive disorder with single episode F32.1 Active/Remission status: currently active Major depression episode severity: moderate UTI (urinary tract infection) N30.00 Hematuria presence: without hematuria Urinary tract infection type: acute cystitis
[2020-01-12 00:52] LABS: Marijuana Quant, GCMS Urine 1230 ng/mL (<5)
== END 2020-01-10 17:00 | disposition home or self-care (01) | DRG 885 ==
LOC: ED 17:51 → 3S 20:56

== ENCOUNTER 2021-05-17 10:14 | Inpatient (IN) ==
[2021-05-17] MEDS ORDERED: PENICILLIN G POTASSIUM 6 MU in DEXTROSE 5% 250 ML IV STA (10:26)
[2021-05-17] MEDS ORDERED: OXYTOCIN 30 UNITS/500 ML BAG IV PRN ×2 (10:26→22:25)
[2021-05-17 10:52] LABS: Hematocrit (blood only) 36.8 % (37-47); Hemoglobin 12.2 g/dL (12.0-16.0); Mean Corpuscular Hgb Conc 33.2 g/dL (32-36); Mean Corpuscular Volume 93.6 fL (80-100); Mean Platelet Volume 10.3 fL (7.4-10.4); Platelet Count 271 K/uL (130-400); RDW Coefficient of Variation 12.6 % (11.5-14.5); RDW Standard Deviation 43.5 fL (36.4-46.3); Red Blood Count 3.93 M/uL (4.2-5.4); White Blood Count 7.47 K/uL (4.8-10.8)
--- NOTE | 2021-05-17 11:00 | History & Physical Report ---
Date of Service May 17, 2021 Assessment & Plan (1) Amniotic fluid leaking: (2) Premature rupture of membranes: Plan: 20-year-old G1, P0 at 38 weeks and 2 days of gestation with premature rupture of membranes at term, not in labor, clear fluids, Vital signs stable afebrile, GBS positive, heart rate reassuring, Cervix unfavorable, Marijuana use during , history of chlamydia infection during with negative test of cure, Plan to admit, monitor, labs, penicillin for GBS, urine drug screen, patient agrees, discussed prolonged latent phase and increased risk of intermittent infection and recommended induction of labor, Patient agrees with plan and plan to start penicillin and then oral Cytotec, Continue to monitor, All questions were answered (3) GBS (group B Streptococcus carrier), +RV culture, currently : (4) Marijuana use: (5) Chlamydia trachomatis infection during in first trimester: Admission and Anticipated Discharge Date Admission Date: May 17, 2021 History of Present Illness Chief Complaint: Leaking Primary Care Provider: NO PCP Patient is a 20-year-old G1, P0 at 38 weeks and 2 days of gestation who woke up with leakage of fluid at 7 AM this morning. It has been gush of fluids coming and has been clear. Patient denies vaginal bleeding, contractions, abdominal pain. And she reports good movements has been complicated by, 1. GBS positive, 2. Chlamydia infection during this , test of cure was negative, 3. Marijuana use during , Allergies Allergy/AdvReac Type Severity Reaction Status Date / Time No Known Allergies Allergy Mild Verified 01/08/20 18:20 Home Medications Medication Instructions Recorded Confirmed Type norgestimate-ethinyl estradiol 1 tab PO DAILY 01/08/20 01/08/20 History 0.18 mg/0.215mg/0.25mg-35 mcg(28)tablet Patient History Medical History Abdominal hernia Family History Other Cancer Gallbladder disease Social History Smoking Status: Current every day smoker Tobacco Type: E-cigarettes / Vaping Preferred Language: Bol[place] Communication Ability: Effective Polygraph Examiner Required: No Beliefs That Will Affect Care: None Feels Safe at Home: Yes Assistive Devices: Glasses CREDIT ASSESSMENT ANALYST History History of chlamydia during this , test of cure is negative. Patient denies history of genital herpes, gonorrhea. Review of Systems as per Subjective / HPI Physical Exam Constitutional: well developed and well nourished Not in acute distress Gastrointestinal (Abdomen): normal bowel sounds, soft, nontender, no hepatosplenomegaly (Gravid) Genitourinary: normal external appearance (Grossly ruptured) OB Exam Abdomen: + vertex Manual OB Exam: + cervical dilation 1 cm, + cervical effacement 30% and + station high (-3) OB Exam Monitor Tracing: + external uterine monitor used and + category I Results & Data ([facility]) Vital Signs (Past 12 Hours) Vital Signs Pulse BP 05/17/21 10:23 90 115/72
[2021-05-17] MEDS: LACTATED RINGER'S 1,000 ML IV PRN ×2 (11:16→20:37)
[2021-05-17] MEDS ORDERED: Nursing to Pharmacy Communication SCH (12:45)
[2021-05-17 13:37] LABS: Amphetamines+Metham, Urine Neg (Neg); Barbiturates, Urine Neg (Neg); Benzodiazepine, Urine Neg (Neg); Cocaine, Urine Neg (Neg); MDMA (Ecstacy), Urine Neg (Neg); Methadone, Urine Neg (Neg); Opiate, Urine Neg (Neg); Phencyclidine, Urine Neg (Neg)
[2021-05-17] MEDS: miSOPROStoL 50 MCG TAB PO SCH (14:18)
--- NOTE | 2021-05-17 16:34 | Obstetrical Progress Note ---
Date of Service May 17, 2021 Assessment & Plan Admission and Anticipated Discharge Date Admission Date: May 17, 2021 Subjective Patient is reevaluated. She feels crampy but very mild pain level is 1 out of 10. Fluid has been clear and baby has been moving. heart rate had been category 1. [place] with irregular mild contractions every 4 to 5 minutes. Cervix is 1 cm, 30% effaced, head at -3 station. Patient received 2 doses of penicillin and 1 dose of p.o. Cytotec. She is hungry and desires to eat dinner. Plan to let her eat dinner and then continue with p.o. Cytotec. All questions were answered. Results & Data ([facility]) Vital Signs (Past 12 Hours) Vital Signs Temp Pulse Resp BP 05/17/21 15:04 74 05/17/21 12:52 36.7 C 73 20 110/64 05/17/21 10:27 37.1 C 20 05/17/21 10:23 90 115/72
[2021-05-17] MEDS ORDERED: BUTORPHANOL TARTRATE 1 MG/ML VIAL IV PRN (18:33)
[2021-05-17] MEDS: PENICILLIN G POTASSIUM 3 MU in DEXTROSE 5% 100 ML IV PRN ×2 (19:18→23:26)
--- NOTE | 2021-05-17 22:25 | Obstetrical Progress Note ---
Date of Service May 17, 2021 Assessment & Plan Admission and Anticipated Discharge Date Admission Date: May 17, 2021 Subjective Patient is reevaluated. She was painful and received Stadol for pain and now comfortable and sleepy. She has regular contractions every 1 to 3 minutes and unable to receive second dose of Cytotec. Vital signs stable afebrile, heart rate category 1, [place] with contractions every 4 to 5 minutes, Plan to continue to monitor, augment with Pitocin per protocol and epidural for pain when patient desires. Results & Data ([facility]) Vital Signs (Past 12 Hours) Vital Signs Temp Pulse Resp BP 05/17/21 19:22 68 116/67 05/17/21 19:05 36.9 C 18 05/17/21 16:58 36.6 C 73 20 116/73 05/17/21 15:04 36.8 C 74 20 117/72 05/17/21 12:52 36.7 C 73 20 110/64 05/17/21 10:27 37.1 C 20
[2021-05-18] MEDS ORDERED: BUPIVACAINE 0.25% 30 ML VIAL ONE (00:05)
[2021-05-18] MEDS ORDERED: ePHEDrine sulfate 50 MG/ML AMP ONE (00:05)
[2021-05-18] MEDS ORDERED: SODIUM CHLORIDE 0.9% INJ 10 ML VIAL ONE (00:05)
[2021-05-18] MEDS ORDERED: fentaNYL citrate 100 MCG/2 ML VIAL ONE (00:05)
[2021-05-18] MEDS ORDERED: fentaNYL 2MCG/ML ROPIVACAINE 1.25MG/ML 100 ML BAG EPI ONE (00:06)
[2021-05-18] MEDS: LACTATED RINGER'S 1,000 ML IV PRN ×3 (00:31→07:04)
--- NOTE | 2021-05-18 00:42 | Anesthesiology Consultation ---
Date of Service May 18, 2021 Assessment & Plan (1) Encounter for pre-operative examination: Chart Review Chart Review: Acceptable Risk for Labor Epidural History Height/Weight Height: 5 ft 2 in Weight: 79.379 kg Allergies Allergy/AdvReac Type Severity Reaction Status Date / Time No Known Allergies Allergy Mild Verified 05/17/21 11:03 Medications Home Medications Medication Instructions Recorded Confirmed Last Taken prenat.vits,brian,zmk-[id number] 1 tab PO DAILY 05/17/21 05/17/21 04/30/21 08:00 Active Medications Generic Name Dose Route Start Last Admin Trade Name Freq PRN Reason Stop Dose Admin Butorphanol Tartrate 1 mg 05/17/21 18:33 05/17/21 21:48 Butorphanol Tartrate 1 Mg/Ml Vial IV 06/16/21 18:32 1 mg Q3HWA PRN Administration Pain Lactated Ringer's 1,000 mls @ 150 mls/hr 05/17/21 10:26 05/18/21 00:31 Lr IV 05/19/21 10:25 999 mls/hr .Q6H40M PRN Administration L&D Protocol Protocol Penicillin G Potassium 3 mu/ 106 mls @ 100 mls/hr 05/17/21 13:26 05/18/21 00:30 Dextrose IV 05/27/21 13:25 Infused Q4H PRN Infusion GBS(+) Until Delivery Oxytocin 30 units in 500 mls @ 1 mls/hr 05/17/21 22:25 05/17/21 23:49 Pitocin IV 05/19/21 22:24 0.06 units/hr .Q24H PRN 1 mls/hr Labor Induction/Augmentation Administration Protocol 0.06 UNITS/HR Misoprostol 50 mcg 05/17/21 14:00 05/17/21 14:18 Misoprostol 50 Mcg Tab PO 06/16/21 13:59 50 mcg Q4H IVY Administration Past Medical History Medical History Abdominal hernia Depression with anxiety Past Family History Family History Other Cancer Gallbladder disease Past Surgical History Surgical History H/O hernia repair Social History Smoking Status: Never smoker tobacco type: e-cigarettes Hx Alcohol Use: No Hx Substance Use: Yes (marijuana at beginning of pregancy) Last Used Substance Other:: 04/23/21 Physical Exam Vital Signs Last Vital Signs Temp 36.4 C L 05/17/21 23:29 Pulse 97 H 05/18/21 00:36 Resp 18 05/17/21 23:29 BP 108/77 05/17/21 23:30 Pulse Ox 96 05/18/21 00:36 Testing Laboratory Results 05/17/21 10:38
[2021-05-18] MEDS: miSOPROStoL 50 MCG TAB PO SCH ×4 (00:46→16:15)
[2021-05-18] MEDS ORDERED: NALOXONE HCL 0.4 MG/1 ML VIAL/CARP IV PRN (01:18)
[2021-05-18] MEDS ORDERED: NALOXONE HCL 1 MG in SODIUM CHLORIDE 0.9% 1000ML 1,000 ML IV PRN (01:18)
[2021-05-18] MEDS ORDERED: ONDANSETRON INJ 2 MG/ML 2 ML VIAL IV PRN (01:18)
[2021-05-18] MEDS ORDERED: ePHEDrine sulfate 50 MG/ML AMP IV PRN (01:18)
[2021-05-18] MEDS ORDERED: fentaNYL 2MCG/ML ROPIVACAINE 1.25MG/ML 100 ML BAG EPI PRN (01:18)
[2021-05-18] MEDS: PENICILLIN G POTASSIUM 3 MU in DEXTROSE 5% 100 ML IV PRN ×2 (03:15→07:09)
--- NOTE | 2021-05-18 06:51 | Obstetrical Progress Note ---
Date of Service May 18, 2021 Assessment & Plan Admission and Anticipated Discharge Date Admission Date: May 17, 2021 Subjective Patient is comfortable now, received epidural for pain. Oxytocin is at 7 mIU/ min. heart rate had been category 1. [place] with contractions every 2 to 3 minutes. Vaginal exam, cervix is 9 cm dilated, 90% effaced, head at +1 station, anterior fontanelle is at 9 o'clock position,LOP Continue to monitor closely, anticipate . Results & Data ([facility]) Vital Signs (Past 12 Hours) Vital Signs Temp Pulse Resp BP Pulse Ox Pulse Ox 05/18/21 06:48 85 110/66 05/18/21 06:46 102 H 100 05/18/21 06:41 70 97 05/18/21 06:36 79 98 05/18/21 06:33 74 104/58 L 05/18/21 06:31 82 97 05/18/21 06:26 91 H 99 05/18/21 06:21 79 95 05/18/21 06:18 79 105/60 05/18/21 06:17 80 94 05/18/21 06:16 80 95 05/18/21 06:11 82 98 05/18/21 06:06 77 95 05/18/21 06:03 78 105/67 94 05/18/21 06:01 78 98 05/18/21 05:56 90 98 05/18/21 05:55 92 H 94 05/18/21 05:51 84 95 05/18/21 05:48 77 105/66 93 05/18/21 05:46 83 98 05/18/21 05:41 93 H 98 05/18/21 05:36 101 H 96 05/18/21 05:35 36.7 C 16 05/18/21 05:33 103 H 107/66 05/18/21 05:31 95 H 98 05/18/21 05:26 97 H 97 05/18/21 05:21 102 H 97 05/18/21 05:19 106 H 112/69 05/18/21 05:16 104 H 97 05/18/21 05:15 16 05/18/21 05:11 104 H 98 05/18/21 05:06 100 H 97 05/18/21 05:04 108 H 110/73 05/18/21 05:01 102 H 97 05/18/21 05:00 16 05/18/21 04:56 108 H 97 05/18/21 04:51 86 96 05/18/21 04:49 80 109/66 05/18/21 04:46 76 98 05/18/21 04:41 78 96 05/18/21 04:36 74 98 05/18/21 04:33 71 108/69 05/18/21 04:31 87 97 05/18/21 04:26 87 98 05/18/21 04:24 91 H 94 05/18/21 04:21 71 100 05/18/21 04:16 79 98 05/18/21 04:11 72 99 05/18/21 04:06 76 97 05/18/21 04:03 90 108/57 L 05/18/21 04:01 80 96 05/18/21 03:58 80 94 05/18/21 03:56 89 97 05/18/21 03:51 77 97 05/18/21 03:48 73 100/60 05/18/21 03:46 75 97 05/18/21 03:41 75 97 05/18/21 03:36 77 98 05/18/21 03:33 71 106/68 05/18/21 03:31 73 98 05/18/21 03:26 78 96 05/18/21 03:21 77 98 05/18/21 03:16 72 97 05/18/21 03:15 36.7 C 16 05/18/21 03:11 78 100 05/18/21 03:06 69 97 05/18/21 03:03 65 94/60 L 05/18/21 03:01 65 99 05/18/21 03:00 16 05/18/21 02:56 88 100 05/18/21 02:51 84 100 05/18/21 02:47 68 103/58 L 05/18/21 02:46 82 97 05/18/21 02:45 16 05/18/21 02:44 77 98/57 L 05/18/21 02:41 70 101/60 96 05/18/21 02:38 80 101/62 05/18/21 02:36 79 95 05/18/21 02:35 75 104/63 05/18/21 02:34 75 94 05/18/21 02:32 79 104/62 05/18/21 02:31 74 96 05/18/21 02:29 80 102/63 05/18/21 02:26 81 101/63 96 05/18/21 02:23 75 102/60 05/18/21 02:21 80 97 05/18/21 02:20 80 101/65 05/18/21 02:17 82 105/67 05/18/21 02:16 93 H 96 05/18/21 02:14 75 102/61 05/18/21 02:11 82 104/64 95 05/18/21 02:08 77 108/68 05/18/21 02:06 73 96 05/18/21 02:05 96 H 106/70 05/18/21 02:02 90 105/66 05/18/21 02:01 85 96 05/18/21 01:59 86 105/64 05/18/21 01:56 86 106/66 96 05/18/21 01:53 99 H 105/76 05/18/21 01:51 102 H 97 05/18/21 01:50 78 105/68 05/18/21 01:47 86 110/73 05/18/21 01:46 84 99 05/18/21 01:45 78 16 109/84 92 05/18/21 01:41 86 87/55 L 98 05/18/21 01:38 86 100/62 05/18/21 01:36 93 H 100 05/18/21 01:35 87 92/57 L 05/18/21 01:32 88 105/58 L 05/18/21 01:31 96 H 99 05/18/21 01:30 88 90 05/18/21 01:29 81 108/61 05/18/21 01:26 99 H 103/63 99 05/18/21 01:25 16 05/18/21 01:23 96 H 105/62 05/18/21 01:21 87 98 05/18/21 01:20 36.8 C 80 16 106/64 05/18/21 01:18 99 05/18/21 01:17 77 105/66 05/18/21 01:16 80 98 05/18/21 01:14 70 110/71 05/18/21 01:11 78 100 05/18/21 01:06 98 H 100 05/18/21 01:01 96 H 122/85 100 05/18/21 00:56 80 100 05/18/21 00:51 90 100 05/18/21 00:46 77 100 05/18/21 00:41 101 H 100 05/18/21 00:36 97 H 96 05/18/21 00:31 95 H 99 05/18/21 00:26 104 H 97 05/18/21 00:21 85 100 05/18/21 00:16 97 H 100 05/17/21 23:30 60 108/77 05/17/21 23:29 36.4 C L 18 05/17/21 21:15 37.0 C 05/17/21 19:22 68 116/67 05/17/21 19:05 36.9 C 18
[2021-05-18] MEDS ORDERED: BENZOCAINE 20% AER SPR 82.5 GM CAN EXT PRN (08:38)
[2021-05-18] MEDS ORDERED: HYDROCORTISONE ACETATE 25 MG SUPP PR PRN (08:38)
[2021-05-18] MEDS ORDERED: OXYTOCIN 30 UNITS/500 ML BAG IV PRN (08:38)
[2021-05-18] MEDS ORDERED: bisacodyL 10 MG SUPP PR PRN (08:38)
--- NOTE | 2021-05-18 08:41 | Delivery Summary ---
Vaginal Delivery Summary Date of Service May 18, 2021 Vaginal Delivery Summary Delivery Note live male NATALIE over intact perineum with delayed cord clamping and Apgars 8/9 weight pending. Cord blood obtained followed by spontaneous delivery of intact placenta. No tears. EBL 100 ml. Strait cath for 250 ml. clear urine. Final sponge and instrument count are correct. Mom and baby stable.
[2021-05-18] MEDS ORDERED: OXYTOCIN 20 UNITS in LACTATED RINGER'S 1,000 ML IV SCH (08:45)
--- NOTE | 2021-05-18 10:23 | Anesthesia Procedure Note ---
Date of Service May 18, 2021 Anesthesia Post Epidural Note Vital Signs Vital Signs: Temp Pulse Resp BP Pulse Ox 37.1 C 97 H 18 101/62 97 05/18/21 07:01 05/18/21 10:18 05/18/21 07:01 05/18/21 10:18 05/18/21 08:31 Pain Intensity Pelvic: Pain Intensity: 8 Left Back: Pain Intensity: 1 Notes Mental Status: alert / awake / arousable Nausea / Vomiting: adequately controlled Pain: adequately controlled Airway Patency, RR, SpO2: stable & adequate BP & HR: stable & adequate Hydration State: stable & adequate Neuraxial Anesthesia: was administered and sensory block is resolving Anesthetic Complications: no major complications apparent and Pt Satisfied with anesthetic care Epidural: Removed without complications and With tip intact
[2021-05-18] MEDS: IBUPROFEN 600 MG TAB PO PRN ×2 (16:14→21:14)
[2021-05-18] MEDS: PRENATAL VITAMIN 1 TAB PO SCH (16:16)
[2021-05-18] MEDS: ACETAMINOPHEN 325 MG TAB PO PRN (18:58)
[2021-05-18] MEDS: DOCUSATE SODIUM 100 MG CAP PO SCH (21:14)
[2021-05-19 06:28] LABS: Hematocrit (blood only) 30.2 % (37-47); Hemoglobin 9.8 g/dL (12.0-16.0); Mean Corpuscular Hemoglobin 30.8 pg (25-34); Mean Corpuscular Hgb Conc 32.5 g/dL (32-36); Mean Platelet Volume 10.4 fL (7.4-10.4); Platelet Count 237 K/uL (130-400); RDW Coefficient of Variation 12.8 % (11.5-14.5); RDW Standard Deviation 44.2 fL (36.4-46.3); Red Blood Count 3.18 M/uL (4.2-5.4); White Blood Count 9.89 K/uL (4.8-10.8)
[2021-05-19] MEDS: ACETAMINOPHEN 325 MG TAB PO PRN (07:38)
[2021-05-19] MEDS: DOCUSATE SODIUM 100 MG CAP PO SCH (07:39)
[2021-05-19] MEDS: PRENATAL VITAMIN 1 TAB PO SCH (07:39)
[2021-05-19] MEDS ORDERED: PRENATAL VITAMIN 1 TAB PO SCH (08:00)
[2021-05-19] MEDS ORDERED: FERROUS SULFATE 325 MG TAB PO SCH (08:00)
[2021-05-19] MEDS ORDERED: LACTATED RINGER'S 1,000 ML IV PRN (08:17)
[2021-05-19] MEDS ORDERED: OXYTOCIN 30 UNITS/500 ML BAG IV PRN (08:17)
--- NOTE | 2021-05-19 08:41 | Obstetrical Progress Note ---
Date of Service May 19, 2021 Assessment & Plan Admission and Anticipated Discharge Date Admission Date: May 17, 2021 Subjective Patient is seen and examined. She feels well, no complaints. Desires d/c today Ambulating without dizziness Voiding without difficulty Tolerating regular diet with out N&V Bleeding is minimal No fever/ chills/ CP/ SOB/ N&V/ Leg pain Bottle feeding without problems Vital Signs Temp Pulse Resp BP Pulse Ox 05/19/21 08:04 36.6 C 65 20 98/61 L 05/19/21 03:25 36.6 C 73 16 100/65 98 05/18/21 23:16 36.7 C 75 16 118/71 97 Lab Results 05/17/21 05/17/21 05/17/21 Range/Units 10:38 11:15 12:56 WBC 7.47 (4.8-10.8) K/uL RBC 3.93 L (4.2-5.4) M/uL Hgb 12.2 (12.0-16.0) g/dL Hct 36.8 L (37-47) % MCV 93.6 (80-100) fL MCH 31.0 (25-34) pg MCHC 33.2 (32-36) g/dL RDW Std Deviation 43.5 (36.4-46.3) fL RDW Coeff of Scotty 12.6 (11.5-14.5) % Plt Count 271 (130-400) K/uL MPV 10.3 (7.4-10.4) fL Urine Opiates Screen Neg (Neg) Ur Methadone, Qual Neg (Neg) Urine Barbiturates Neg (Neg) Ur Phencyclidine (PCP) Neg (Neg) U Amphetamin/Meth Scrn Neg (Neg) MDMA (Ecstasy) Screen Neg (Neg) U Benzodiazepines Scrn Neg (Neg) Ur Cocaine Metabolite Neg (Neg) U Marijuana (THC) Screen Neg (Neg) SARS-CoV-2, RNA, NAAT NEGATIVE (NEGATIVE) 05/19/21 Range/Units 05:55 WBC 9.89 (4.8-10.8) K/uL RBC 3.18 L (4.2-5.4) M/uL Hgb 9.8 L (12.0-16.0) g/dL Hct 30.2 L (37-47) % MCV 95.0 (80-100) fL MCH 30.8 (25-34) pg MCHC 32.5 (32-36) g/dL RDW Std Deviation 44.2 (36.4-46.3) fL RDW Coeff of Scotty 12.8 (11.5-14.5) % Plt Count 237 (130-400) K/uL MPV 10.4 (7.4-10.4) fL Urine Opiates Screen (Neg) Ur Methadone, Qual (Neg) Urine Barbiturates (Neg) Ur Phencyclidine (PCP) (Neg) U Amphetamin/Meth Scrn (Neg) MDMA (Ecstasy) Screen (Neg) U Benzodiazepines Scrn (Neg) Ur Cocaine Metabolite (Neg) U Marijuana (THC) Screen (Neg) SARS-CoV-2, RNA, NAAT (NEGATIVE) PE: General: Alert, orientedx3, NAD Abd: soft, NT, fundus firm, below Umbilicus Perineum intact, Lochia rubra minimal Ext; NT, no edema AP: 20 yo s/p , ppd# 1 VSS Afebrile doing well Continue routine care All questions were answered D/C home with baby Discussed when to call Results & Data ([facility]) Vital Signs (Past 12 Hours) Vital Signs Temp Pulse Resp BP Pulse Ox 05/19/21 08:04 36.6 C 65 20 98/61 L 05/19/21 03:25 36.6 C 73 16 100/65 98 05/18/21 23:16 36.7 C 75 16 118/71 97
[2021-05-19] MEDS ORDERED: DIPHTHERIA/TETANUS/PERTUSSIS 0.5 ML SYR/VIAL IM ONE (09:00)
[2021-05-19] MEDS ORDERED: bisacodyL 5 MG TABEC PO SCH (20:00)
== END 2021-05-19 15:41 | disposition home or self-care (01) | DRG 806 ==
LOC: OPB 10:14 → 4S1 10:16 → 4S2 05-18 11:32

== ENCOUNTER 2022-05-10 05:49 | Inpatient (IN) ==
[2022-05-10] MEDS ORDERED: LIDOCAINE 1% LOCAL 20 ML VIAL INFIL PRN (06:32)
[2022-05-10] MEDS ORDERED: OXYTOCIN 30 UNITS/500 ML BAG IV PRN ×2 (06:32→16:04)
--- NOTE | 2022-05-10 06:40 | History & Physical Report ---
Date of Service May 10, 2022 Assessment & Plan (1) Premature rupture of membranes: Plan: Admit, routine labs, COVID/RSV/flu swab IUPC placed, start oxytocin for augmentation Epidural with patient request Anticipate spontaneous vaginal delivery (2) 39 weeks gestation of : (3) Short interval between pregnancies affecting in third trimester, antepartum: (4) Antepartum anemia complicating in third trimester: Plan: CBC pending History of Present Illness Chief Complaint: LOF Primary Care Provider: Jeronimo Carey MD Patient is a 21-year-old -0-1-1 at 39 weeks and 6 days who presents to labor and delivery with a complaint of loss of fluid at 2:30 AM. Patient states she had a big gush of clear fluid, but denies any contractions, vaginal bleeding. Notes good movement. Denies headache, blurry vision, right upper quadrant epigastric pain. Otherwise feeling well has been complicated by short interval between pregnancies, rubella nonimmune, and antepartum anemia. She is complaining of upper respiratory tract symptoms, was seen on May 08, COVID and flu swab were negative at that time. She is still having congestion and cough. No other complaints at this time Allergies Allergy/AdvReac Type Severity Reaction Status Date / Time No Known Allergies Allergy Mild Verified 08/01/21 15:01 Home Medications Medication Instructions Recorded Confirmed Type prenat.vits,brian,[id number] 1 tab PO QAM 05/17/21 05/10/22 History iron,carbonyl 65 mg-vitamin C 125 1 tab PO DAILY 05/10/22 05/10/22 History mg tablet,delayed release (Vitron-C) Patient History Medical History Abdominal hernia Anemia affecting Depression with anxiety Surgical History H/O hernia repair [place] teeth extracted Family History Other Cancer Gallbladder disease Social History Smoking Status: Former smoker Tobacco Type: E-cigarettes / Vaping Hx Alcohol Use: No Hx Substance Use: No Preferred Language: Persian Communication Ability: Effective 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 Review of Systems All systems reviewed & are unremarkable except as noted in HPI & below Physical Exam Constitutional: WD/WN, vitals as above Respiratory: normal respiratory effort, lungs clear to auscultation Cardiovascular: RRR, no murmur, no edema Gastrointestinal (Abdomen): normal bowel sounds, soft, nontender, no hepatosplenomegaly (Gravid, cephalic, Diego's 3500 g) Genitourinary: Sterile speculum exam: Pooling of clear fluid, nitrazine positive, Valsalva positive, grossly ruptured Cervix: 2/40/-3, IUPC was Results & Data ([facility]) Vital Signs (Past 12 Hours) Vital Signs Temp Pulse Resp BP 05/10/22 05:49 36.9 C 18 05/10/22 06:01 110 H 110/69 Monitoring External Monitor heart monitor: Baseline 130, moderate variability, variable deceleration, positive accelerations Tocodynamometer Tocometer: Irritability, no contractions seen
[2022-05-10 07:14] LABS: Hematocrit (blood only) 31.6 % (37.0-47.0); Hemoglobin 10.3 g/dl (12.0-16.0); Mean Corpuscular Hgb Conc 32.6 g/dL (32.0-36.0); Mean Platelet Volume 10.2 fL (9.4-12.4); Platelet Count 252 K/uL (130-400); RDW Coefficient of Variation 13.4 % (11.5-14.5); RDW Standard Deviation 43.7 fL (36.4-46.3); Red Blood Count 3.55 M/uL (4.20-5.40)
[2022-05-10] MEDS: LACTATED RINGER'S 1,000 ML IV PRN ×3 (07:38→14:22)
[2022-05-10] MEDS: ASCORBIC ACID 500 MG TAB PO SCH (08:36)
[2022-05-10] MEDS: PRENATAL VITAMIN 1 TAB PO SCH (08:36)
[2022-05-10] MEDS: FERROUS SULFATE 325 MG TAB PO SCH (08:37)
[2022-05-10 09:04] LABS: Influenza A virus by PCR Negative (Neg); Influenza B virus by PCR Negative (Neg); RSV by PCR Negative (Neg); SARS CoV2 RNA(COVID-19) Ceph NEGATIVE (Negative)
[2022-05-10] MEDS ORDERED: BUPIVACAINE 0.25% 30 ML VIAL ONE (09:49)
[2022-05-10] MEDS ORDERED: ePHEDrine sulfate 50 MG/ML AMP ONE (09:49)
[2022-05-10] MEDS ORDERED: SODIUM CHLORIDE 0.9% INJ 10 ML VIAL ONE (09:49)
[2022-05-10] MEDS ORDERED: fentaNYL citrate 100 MCG/2 ML VIAL ONE (09:49)
[2022-05-10] MEDS ORDERED: LIDOCAINE 2%/EPINEPHRINE 1:200,000 20 ML SDV ONE (09:49)
[2022-05-10] MEDS ORDERED: fentaNYL 2MCG/ML ROPIVACAINE 1.25MG/ML 100 ML BAG EPI ONE (09:50)
[2022-05-10] MEDS ORDERED: ePHEDrine sulfate 50 MG/ML AMP IV PRN (10:25)
[2022-05-10] MEDS ORDERED: diphenhydrAMINE 50 MG/ML VIAL IV PRN (10:25)
[2022-05-10] MEDS ORDERED: ONDANSETRON INJ 2 MG/ML 2 ML VIAL IV PRN (10:25)
[2022-05-10] MEDS ORDERED: NALOXONE HCL 0.4 MG/1 ML VIAL/CARP IV PRN (10:25)
[2022-05-10] MEDS ORDERED: NALBUPHINE HCL INJ 10 MG/ML AMP IV PRN (10:25)
[2022-05-10] MEDS ORDERED: fentaNYL 2MCG/ML ROPIVACAINE 1.25MG/ML 100 ML BAG EPI PRN (10:25)
[2022-05-10] MEDS ORDERED: NALOXONE HCL 1 MG in SODIUM CHLORIDE 0.9% 1000ML 1,000 ML IV PRN (10:25)
--- NOTE | 2022-05-10 10:25 | Anesthesiology Consultation ---
Date of Service May 10, 2022 Assessment & Plan ASA ASA2 Proposed Anesthesia Anesthesia Type: Labor Epidural Risk / Benefits Reviewed With: PT / POA / Parent / Guardian, Accepts Plan and Informed Consent Obtained History Height/Weight Height: 5 ft 2 in Weight: 80.286 kg Allergies Allergy/AdvReac Type Severity Reaction Status Date / Time No Known Allergies Allergy Mild Verified 08/01/21 15:01 Medications Home Medications Medication Instructions Recorded Confirmed Last Taken prenat.vits,brian,[id number] 1 tab PO QAM 05/17/21 05/10/22 05/03/22 09:00 iron,carbonyl 65 mg-vitamin C 125 1 tab PO DAILY 05/10/22 05/10/22 05/03/22 09:00 mg tablet,delayed release (Vitron-C) Active Medications Generic Name Dose Route Start Last Admin Trade Name Freq PRN Reason Stop Dose Admin Ascorbic Acid 250 mg 05/10/22 09:00 05/10/22 08:36 Ascorbic Acid 500 Mg Tab PO 06/09/22 08:59 Not Given QAM [facility] Ferrous Sulfate 325 mg 05/10/22 09:00 05/10/22 08:37 Ferrous Sulfate 325 Mg Tab PO 06/09/22 08:59 Not Given DAILY [facility] Lactated Ringer's 1,000 mls @ 125 mls/hr 05/10/22 06:32 05/10/22 07:38 Lr IV 05/12/22 06:31 125 mls/hr .Q8H PRN Administration L&D Protocol Protocol Oxytocin 30 units in 500 mls @ 6 mls/hr 05/10/22 06:32 05/10/22 09:20 Pitocin IV 05/12/22 06:31 0.36 units/hr .Q24H PRN 6 mls/hr Labor Induction/Augmentation Titration Protocol 0.36 UNITS/HR Prenat Multivit/Septic Technician/Iron/Folic Ac 1 tab 05/10/22 08:00 05/10/22 08:36 Vitamin 1 Tab PO 06/09/22 07:59 Not Given DAILY@0800 IVY Past Medical History Medical History Abdominal hernia Anemia affecting Depression with anxiety Exercise / Class Metabolic Activity II 4-5 Yardwork/Stairs/Walk up hill Past Family History Family History Other Cancer Gallbladder disease Past Surgical History Surgical History H/O hernia repair [place] teeth extracted Past Anesthesia History No Hx of Anesthesia Complications and No Family Hx of Anesthesia Complications History of PONV No Hx of PONV and No Hx of Motion Sickness Social History Smoking Status: Former smoker tobacco type: e-cigarettes Hx Alcohol Use: No Hx Substance Use: No substance use type: does not use Review of Systems denies fever/cough/ colds/ chest pain/ SOB/ EASTON denies E[place]ON Physical Exam Vital Signs Last Vital Signs Temp 36.7 C 05/10/22 09:00 Pulse 74 05/10/22 10:20 Resp 18 05/10/22 10:09 BP 113/64 05/10/22 10:09 Pulse Ox 100 05/10/22 10:20 ENMT Mouth: no TMJ abnormality and no dentition abnormality Thyromental Distance: > or= 3.5 Finger Breadths Mallampati Class: II Neck neck extension not limited Respiratory normal respiratory effort; no respiratory distress Auscultation: lungs clear to auscultation bilaterally Cardiovascular Rate/Rhythm: regular rate and regular rhythm Neurologic moves all extremities Psychiatric Orientation: alert and oriented x 3 Testing Laboratory Results 05/10/22 06:49
[2022-05-10] MEDS ORDERED: HYDROCORTISONE ACETATE 25 MG SUPP PR PRN (16:04)
[2022-05-10] MEDS ORDERED: bisacodyL 10 MG SUPP PR PRN (16:04)
[2022-05-10] MEDS ORDERED: BENZOCAINE 20% AER SPR 82.5 GM CAN EXT PRN (16:04)
[2022-05-10] MEDS ORDERED: DIPHTHERIA/TETANUS/PERTUSSIS 0.5mL SYR/VIAL (Age 7+yrs) IM ONE (16:04)
[2022-05-10] MEDS ORDERED: ACETAMINOPHEN 325 MG TAB PO PRN (16:04)
--- NOTE | 2022-05-10 16:07 | Delivery Summary ---
Vaginal Delivery Summary Date of Service May 10, 2022 Vaginal Delivery Summary Delivery Note live female NATALIE with nuchal cord x1 reduced at delivery of head over intact perineum with delayed cord clamping and Apgars 8/9 weight pending. Cord blood obtained followed by spontaneous delivery of intact placenta. Small 1st degree vaginal tear repaired with 3/0 Vicryl suture. EBL 200 ml. Final sponge needle and instrument count are correct. Mom and baby stable.
[2022-05-10] MEDS: IBUPROFEN 600 MG TAB PO PRN ×2 (16:42→23:46)
[2022-05-10] MEDS: OXYTOCIN 30 UNITS/500 ML BAG IV PRN ×2 (16:43→18:07)
[2022-05-10] MEDS ORDERED: METHYLERGONOVINE MALEATE 0.2 MG/ML AMP ONE (17:11)
[2022-05-10] MEDS ORDERED: METHYLERGONOVINE MALEATE 0.2 MG/ML AMP IM STA (17:12)
--- NOTE | 2022-05-10 19:21 | Anesthesia Procedure Note ---
Date of Service May 10, 2022 Anesthesia Post Epidural Note Vital Signs Vital Signs: Temp Pulse Resp BP Pulse Ox 36.7 C 66 18 109/57 L 88 L 05/10/22 19:00 05/10/22 19:19 05/10/22 19:00 05/10/22 19:19 05/10/22 15:45 Pain Intensity Lower Abdomen: Pain Intensity: 0 Notes Mental Status: alert / awake / arousable and participated in evaluation Nausea / Vomiting: adequately controlled Pain: adequately controlled Airway Patency, RR, SpO2: stable & adequate BP & HR: stable & adequate Hydration State: stable & adequate Neuraxial Anesthesia: was administered and sensory block is resolving Anesthetic Complications: no major complications apparent and Pt Satisfied with anesthetic care Epidural: Removed without complications and With tip intact
[2022-05-10] MEDS: DOCUSATE SODIUM 100 MG CAP PO SCH (20:32)
[2022-05-11] MEDS: IBUPROFEN 600 MG TAB PO PRN ×2 (05:45→12:43)
[2022-05-11 07:37] LABS: Hematocrit (blood only) 28.9 % (37.0-47.0); Hemoglobin 9.2 g/dl (12.0-16.0); Mean Corpuscular Hgb Conc 31.8 g/dL (32.0-36.0); Mean Corpuscular Volume 91.2 fL (80.0-100.0); Mean Platelet Volume 10.2 fL (9.4-12.4); Platelet Count 216 K/uL (130-400); RDW Coefficient of Variation 13.4 % (11.5-14.5); RDW Standard Deviation 44.9 fL (36.4-46.3); Red Blood Count 3.17 M/uL (4.20-5.40); White Blood Count 9.91 K/ul (4.8-10.8)
[2022-05-11] MEDS ORDERED: FERROUS SULFATE 325 MG TAB PO SCH (08:00)
[2022-05-11] MEDS ORDERED: PRENATAL VITAMIN 1 TAB PO SCH (08:00)
[2022-05-11] MEDS ORDERED: MEASLES, MUMPS & RUBELLA VIRUS VIAL SQ ONE (08:17)
[2022-05-11] MEDS: FERROUS SULFATE 325 MG TAB PO SCH (08:19)
[2022-05-11] MEDS: DOCUSATE SODIUM 100 MG CAP PO SCH (08:19)
[2022-05-11] MEDS: PRENATAL VITAMIN 1 TAB PO SCH (08:19)
[2022-05-11] MEDS: ASCORBIC ACID 500 MG TAB PO SCH (10:05)
--- NOTE | 2022-05-11 11:36 | Obstetrical Progress Note ---
Date of Service May 11, 2022 Assessment & Plan (1) Normal course: Pt doing well No complaints d/c home with instructions Results & Data ([facility]) Vital Signs (Past 12 Hours) Vital Signs Temp Pulse Resp BP Pulse Ox O2 Del Method 05/11/22 08:00 36.4 C L 84 18 108/64 98 Room Air 05/11/22 03:35 36.5 C 63 16 90/50 L 96 Room Air
[2022-05-11] MEDS ORDERED: bisacodyL 5 MG TABEC PO SCH (20:00)
== END 2022-05-11 17:13 | disposition home or self-care (01) | DRG 807 ==
LOC: OPB 05:49 → 4S1 05:52 → 4E2 19:55